=== PATIENT | female | born 1945 | race Asian ===

== ENCOUNTER 2019-05-30 16:18 | Emergency (ER) | payer OTHER ==
[~2019-05-30] VITALS: Ht 157.5 cm; Wt 67.2 kg
--- NOTE | 2019-05-30 16:55 | NUR ---
THIS IS A 73 YO F W/ C/O DRY NON PRODUCTIVE COUGHX1 WEEK. REPORTS CP FROM STERNUM WHEN COUGHING, NO RADIATION, NO NAUSEA. RESP EVEN AND UNLABORED. CONVERING IN FULL SENTENCES W/O DIFFICULTY. NADN. VS STABLE. PT RESTING ON [employer] W/ CALL LIGHT IN REACH. CONNECTED TO ALL MONITORING. AWAITING ORDERS.
--- NOTE | 2019-05-30 16:59 | NUR ---
PT TO RAD.
--- NOTE | 2019-05-30 17:05 | NUR ---
LAB IN ROOM.
[2019-05-30 17:17] LABS: BASOPHILS # (AUTO) 0.11 x10^3/uL (0-0.1); BASOPHILS % (AUTO) 2 % (0-1); EOSINOPHILS # (AUTO) 0.16 x10^3/uL (0-0.4); EOSINOPHILS % (AUTO) 2 % (1-7); LYMPHOCYTES % (AUTO) 31 % (22-44); MD NO; MEAN CORPUSCULAR HEMOGLOBIN 29.7 pg (27.0-34.8); MEAN CORPUSCULAR HGB CONC 33.3 g/dL (32.4-35.8); MEAN CORPUSCULAR VOLUME 89.2 fL (80-100); MEAN PLATELET VOLUME 7.7 fL (7.4-10.4); MONOCYTES # (AUTO) 0.61 x10^3/uL (0.2-0.8); MONOCYTES % (AUTO) 9 % (2-9); NEUTROPHILS # (AUTO) 4.05 x10^3/uL (1.8-6.8); NEUTROPHILS % (AUTO) 57 % (42-75); PLATELET COUNT 220 x10^3/uL (130-400); RED BLOOD COUNT 4.62 x10^6/uL (3.82-5.3); RED CELL DISTRIBUTION WIDTH 13.6 % (9.6-15.2)
[2019-05-30 17:26] LABS: ALBUMIN 3.4 g/dL (3.4-5.0); ANION GAP 8 mmol/L (5-15); CALCIUM 8.6 mg/dL (8.5-10.1); CHLORIDE 105 mmol/L (98-107); CREATININE 0.53 mg/dL (0.55-1.02)
[2019-05-30 17:30] LABS: TROPONIN I < 0.015 ng/mL (0.000-0.045)
--- NOTE | 2019-05-30 17:34 | NUR ---
ALL TESTS RESULTED. PT IS UP FOR RECHECK AT THIS TIME.
--- NOTE | 2019-05-30 17:44 | NUR ---
PT AMBULATED TO THE BR W/ A STEADY GAIT.
--- NOTE | 2019-05-30 18:36 | NUR ---
PT TO RAD.
[2019-05-30] MEDS ORDERED: OMNIPAQUE 350 MG/ML, 100ML BOTTLE ONE (18:48)
[2019-05-30 19:09] VITALS: BP 124/57
--- NOTE | 2019-05-30 19:10 | NUR ---
PT RESTING ON [employer] W/ CALL LIGHT IN REACH. AWAITING RESULTS.
--- NOTE | 2019-05-30 19:16 | NUR ---
ALL TESTS RESULTED. PT IS UP FOR RECHECK AT THIS TIME.
== END 2019-05-30 20:02 | disposition home or self-care (01) ==
LOC: ED 17:18
DX: J15.9 Unspecified bacterial pneumonia (principal)
CPT/HCPCS: 36415; 71046; 71275; 80048; 82040; 83880; 84484; 85025; 85379; 93005; 99285; Q9967